=== PATIENT | male | born 1955 | race Caucasian/White ===

== ENCOUNTER 2017-03-31 18:19 | Emergency (ER) | payer BC ==
[~2017-03-31] VITALS: Ht 175.3 cm; Wt 113.9 kg
[~2017-03-31 18:19] MED LIST: ADULT LOW DOSE81 M1 PO; ALLEGRA60 MG PO; AMLODIPINE BESYL5 MG PO; ANDROGEL5 GM PO; BENADRYL50 MG PO; BISACODYL SUPP10 MG PR; CORGARD40 MG PO; CYCLOBENZAPRINE10 MG PO; DOCUSATE SODIU100 MG PO; DRISDOL50000 UNIT PO; DYAZIDE, MA1 CAPSULE PO; DYMISTA NASAL S23 GM BOTH NARES; EPIPEN ADU0.3 MG/0.3 IM; KEFLEX500 MG PO; LANOXIN,DIGIT0.25 MG PO; LANOXIN250 MCG PO; LANTUS 3 M100 UNITS/ SC; LANTUS100 UNIT/2 SQ; LEVEMIR FL100 UNIT/1 SC; LEVEMIR FL100 UNITS/ SC; LOPID600 M1 PO; MAVIK1 MG PO; MELOXICAM15 MG PO; MILK OF MAGNESI10 ML PO; MINOCIN100 MG PO; NOVOLOG PE100 UNITS/ SC; NOVOLOG100 UNIT/3; OXYCODONE HCL5 MG PO; OXYCONTIN10 MG PO; PREDNISONE10 MG PO; PREDNISONE20 MG PO; SENNA8.6 MG PO; TESTIM 1% TP; Vitamin D, Drisdol PO; ZOCOR10 MG PO; ZOLOFT100 MG PO; Zocor PO; Zoloft PO; [UNRECOGNIZED DRUG - OTHER] TP
[2017-03-31] MEDS ORDERED: KEFLEX500 MG PO (20:51)
[2017-03-31] MEDS ORDERED: PERCOCET 5/31 TABLET PO (20:51)
[2017-03-31 21:19] VITALS: BP 161/76
== END 2017-03-31 21:20 | disposition home or self-care (01) ==
LOC: EME 18:19
PROC: 0HQGXZZ Repair Left Hand Skin, External Approach (ICD-10-PCS; principal; 2017-03-31)
DX: S61.112A Laceration without foreign body of left thumb with damage to nail, initial encounter (principal); S62.522A Displaced fracture of distal phalanx of left thumb, initial encounter for closed fracture; W31.2XXA Contact with powered woodworking and forming machines, initial encounter; I10 Essential (primary) hypertension; E11.9 Type 2 diabetes mellitus without complications; Z79.4 Long term (current) use of insulin; Z88.0 Allergy status to penicillin; F17.200 Nicotine dependence, unspecified, uncomplicated
CPT/HCPCS: 73140; 99281; 99284; S0020